=== PATIENT | male | born 1970 | race Caucasian/White ===

== ENCOUNTER 2024-05-19 18:32 | Inpatient (IN) | payer OTHER ==
[2024-05-19 18:57] VITALS: BMI 27.3
[2024-05-19] MEDS ORDERED: IBUPROFEN 400 MG TABLET (FP) PO PRN (21:41)
[2024-05-19] MEDS ORDERED: NALOXONE (NARCAN) HCL 4 MG/0.1 ML SPRAY NS PRN (21:41)
[2024-05-19] MEDS ORDERED: POLYETHYLENE GLYCOL (HEALTHYLAX) 3350 17 GM PACKET PO PRN (21:41)
[2024-05-19] MEDS ORDERED: BENZOCAINE/MENTHOL (CHLORASEPTIC ) LOZENGE MM PRN (21:41)
[2024-05-19] MEDS ORDERED: MAG HYDROX/AL HYDROX/SIMETH 30 ML UNIT-DOSE CUP PO PRN (21:41)
[2024-05-19] MEDS ORDERED: DICYCLOMINE HCL 10 MG CAPSULE PO PRN (21:41)
[2024-05-19] MEDS ORDERED: ONDANSETRON *ODT* 4 MG TABLET SL PRN (21:41)
[2024-05-19] MEDS ORDERED: BENZONATATE 200 MG CAPSULE PO PRN (21:41)
[2024-05-19] MEDS ORDERED: LOPERAMIDE HCL 2 MG CAPSULE PO PRN (21:41)
[2024-05-19] MEDS ORDERED: MAGNESIUM HYDROX 2400MG/30ML ORAL SUSPENSION 30 ML CUP PO PRN (21:41)
[2024-05-19] MEDS ORDERED: NALOXONE HCL 0.4 MG/ML VIAL IM PRN (21:41)
[2024-05-19] MEDS ORDERED: guaiFENesin 600 MG TABLET.ER (FP) PO PRN (21:41)
[2024-05-19] MEDS ORDERED: chlordiazePOXIDE HCL 25 MG CAPSULE PO PRN (21:41)
[2024-05-19] MEDS ORDERED: NICOTINE POLACRILEX 4 MG GUM BUC PRN (21:41)
[2024-05-19] MEDS ORDERED: BISMUTH SUBSALICYLATE 524 MG/30 ML PO PRN (21:41)
[2024-05-19] MEDS ORDERED: hydrOXYzine PAMOATE 25 MG CAPSULE (FP) PO ONE (21:49)
[2024-05-19] MEDS: chlordiazePOXIDE HCL 25 MG CAPSULE PO ONE (21:53)
[2024-05-19] MEDS: hydrOXYzine PAMOATE 25 MG CAPSULE (FP) PO PRN (21:54)
[2024-05-19] MEDS: METHOCARBAMOL 500 MG TABLET PO PRN (21:54)
[2024-05-19] MEDS: THIAMINE 100 MG TABLET PO SCH (22:40)
[2024-05-19] MEDS: MELATONIN 5 MG TABLETS PO SCH (22:40)
[2024-05-19] MEDS: chlordiazePOXIDE HCL 25 MG CAPSULE PO SCH (23:02)
[2024-05-20] MEDS: NICOTINE 21 MG/24 HOURS TOPICAL PATCH TD SCH (10:22)
[2024-05-20] MEDS: PRENATAL VITAMINS W/ FOLIC ACID TABLET (FP) PO SCH (10:26)
[2024-05-20 11:06] LABS: HEMATOCRIT 38.1 % (35.4-49); HEMOGLOBIN 12.6 GM/dL (11.7-16.9); MCH 27.4 pg (25.7-33.7); MCHC 33.2 g/dl (32.0-35.9); MEAN CELL VOLUME 82.7 fl (80-96); MEAN PLT VOLUME 8.7 fl (7.5-11.1); PLATELET COUNT 241 10^3/uL (134-434); RBC 4.61 M/mm3 (4.00-5.60); RDW 17.2 % (11.9-15.9); WHITE BLOOD COUNT 7.2 K/mm3 (4.0-10.0)
[2024-05-20 11:08] LABS: CHLORIDE 108 mmol/L (98-107); POTASSIUM 3.2 mmol/L (3.5-5.1); SODIUM 140 mmol/L (136-145)
[2024-05-20 11:13] LABS: ALBUMIN 3.4 g/dl (3.4-5.0); ANION GAP 4 mmol/L (4-13); BLOOD UREA NITROGEN 10.4 mg/dL (7-18); CALCIUM 9.2 mg/dL (8.5-10.1); CO2 29 mmol/L (21-32); GLUCOSE,RANDOM 143 mg/dL (74-106)
[2024-05-20 11:16] LABS: CREATININE 0.8 mg/dL (0.55-1.3); SGOT/AST 25 U/L (15-37); SGPT/ALT 26 U/L (13-61)
[2024-05-20 11:18] LABS: BILIRUBIN,TOTAL 1.1 mg/dL (0.2-1); TOT PROT 7.1 g/dl (6.4-8.2)
[2024-05-20 11:19] LABS: ALK PHOS 89 U/L (45-117)
[2024-05-20] MEDS: IBUPROFEN 600 MG TABLET (FP) PO PRN (17:25)
[2024-05-21] MEDS: ACETAMINOPHEN 325 MG TABLET (FP) PO PRN (05:16)
[2024-05-21] MEDS: chlordiazePOXIDE HCL 25 MG CAPSULE PO SCH (05:17)
[2024-05-21] MEDS: POTASSIUM CHLORIDE ORAL LIQUID 20 MEQ/15 ML PO ONE (09:55)
[2024-05-22] MEDS: chlordiazePOXIDE HCL 10 MG CAPSULE PO PRN (03:32)
[2024-05-22] MEDS: chlordiazePOXIDE HCL 10 MG CAPSULE PO SCH (05:22)
[2024-05-22] MEDS: GABAPENTIN 100 MG CAPSULE PO SCH (09:14)
[2024-05-22 13:57] LABS: POTASSIUM 3.4 mmol/L (3.5-5.1)
[2024-05-22 14:09] LABS: BLOOD UREA NITROGEN 6.2 mg/dL (7-18); CALCIUM 8.9 mg/dL (8.5-10.1)
[2024-05-22 14:12] LABS: CREATININE 0.8 mg/dL (0.55-1.3)
[2024-05-22] MEDS: PRAMIPEXOLE DIHYDROCHLORIDE 0.125 MG TABLET PO SCH (19:07)
[2024-05-22] MEDS: POTASSIUM CHLORIDE ORAL LIQUID 20 MEQ/15 ML PO ONE ×2 (19:08→21:59)
[2024-05-22] MEDS: busPIRone HCL 10 MG TABLET (FP) PO SCH (21:57)
[2024-05-22] MEDS: QUEtiapine FUMARATE 200 MG TABLET PO SCH (21:57)
[2024-05-23] MEDS: chlordiazePOXIDE HCL 10 MG CAPSULE PO SCH (05:58)
[2024-05-23] MEDS: SERTRALINE HCL 50 MG TABLET (FP) PO SCH (10:32)
[2024-05-23 12:32] LABS: POTASSIUM 3.9 mmol/L (3.5-5.1)
[2024-05-23 12:35] LABS: CALCIUM 8.8 mg/dL (8.5-10.1)
[2024-05-23 12:36] LABS: BLOOD UREA NITROGEN 4.5 mg/dL (7-18)
[2024-05-23 12:39] LABS: CREATININE 0.6 mg/dL (0.55-1.3)
[2024-05-24] MEDS: chlordiazePOXIDE HCL 10 MG CAPSULE PO ONE (05:50)
[2024-05-24 08:52] VITALS: BP 143/90; PULSE 65; RESP 19; TEMP 97.7
== END 2024-05-24 09:38 | disposition other institution (70) | DRG 773 ==
LOC: YASAS 18:32 → Y3N 21:56
PROVIDERS: ADMIT Allergy & Immunology; ATTEND Surgery
PROC: HZ2ZZZZ Detoxification Services for Substance Abuse Treatment (ICD-10-PCS; principal; 2024-05-19)
DX: F10.230 Alcohol dependence with withdrawal, uncomplicated (principal); F11.20 Opioid dependence, uncomplicated; F14.20 Cocaine dependence, uncomplicated; F17.210 Nicotine dependence, cigarettes, uncomplicated; F19.282 Other psychoactive substance dependence with psychoactive substance-induced sleep disorder; F19.24 Other psychoactive substance dependence with psychoactive substance-induced mood disorder; F31.9 Bipolar disorder, unspecified; F41.9 Anxiety disorder, unspecified; F43.10 Post-traumatic stress disorder, unspecified; E87.6 Hypokalemia; G25.81 Restless legs syndrome; I10 Essential (primary) hypertension; J45.20 Mild intermittent asthma, uncomplicated; Z62.810 Personal history of physical and sexual abuse in childhood
CPT/HCPCS: 36415; 80048; 80053; 80305; 80307; 85027; 86780; 93005; 93010

== ENCOUNTER 2024-07-06 13:32 | Inpatient (IN) | payer OTHER ==
[2024-07-06] MEDS: IBUPROFEN 400 MG TABLET (FP) PO ONE (04:25)
[2024-07-06 14:15] VITALS: BMI 28.6
[2024-07-06] MEDS ORDERED: MAGNESIUM HYDROX 2400MG/30ML ORAL SUSPENSION 30 ML CUP PO PRN (16:51)
[2024-07-06] MEDS ORDERED: MAG HYDROX/AL HYDROX/SIMETH 30 ML UNIT-DOSE CUP PO PRN (16:51)
[2024-07-06] MEDS ORDERED: guaiFENesin 600 MG TABLET.ER (FP) PO PRN (16:51)
[2024-07-06] MEDS ORDERED: ONDANSETRON *ODT* 4 MG TABLET SL PRN (16:51)
[2024-07-06] MEDS ORDERED: DICYCLOMINE HCL 10 MG CAPSULE PO PRN (16:51)
[2024-07-06] MEDS ORDERED: IBUPROFEN 400 MG TABLET (FP) PO PRN (16:51)
[2024-07-06] MEDS ORDERED: BENZONATATE 200 MG CAPSULE PO PRN (16:51)
[2024-07-06] MEDS ORDERED: POLYETHYLENE GLYCOL (HEALTHYLAX) 3350 17 GM PACKET PO PRN (16:51)
[2024-07-06] MEDS ORDERED: BISMUTH SUBSALICYLATE 524 MG/30 ML PO PRN (16:51)
[2024-07-06] MEDS ORDERED: LOPERAMIDE HCL 2 MG CAPSULE PO PRN (16:51)
[2024-07-06] MEDS ORDERED: BENZOCAINE/MENTHOL (CHLORASEPTIC ) LOZENGE MM PRN (16:51)
[2024-07-06] MEDS ORDERED: NALOXONE (NARCAN) HCL 4 MG/0.1 ML SPRAY NS PRN (16:51)
[2024-07-06] MEDS: hydrOXYzine PAMOATE 25 MG CAPSULE (FP) PO PRN (18:02)
[2024-07-06] MEDS: chlordiazePOXIDE HCL 25 MG CAPSULE PO PRN (18:02)
[2024-07-06] MEDS: METHOCARBAMOL 500 MG TABLET PO PRN (18:02)
[2024-07-06] MEDS: THIAMINE 100 MG TABLET PO SCH (22:42)
[2024-07-06] MEDS: MELATONIN 5 MG TABLETS PO SCH (22:42)
[2024-07-06] MEDS: chlordiazePOXIDE HCL 25 MG CAPSULE PO SCH (22:42)
[2024-07-07] MEDS: PRENATAL VITAMINS W/ FOLIC ACID TABLET (FP) PO SCH (10:03)
[2024-07-07] MEDS: SERTRALINE HCL 50 MG TABLET (FP) PO SCH (11:29)
[2024-07-07] MEDS: busPIRone HCL 10 MG TABLET (FP) PO ONE (12:16)
[2024-07-07 14:23] LABS: CHLORIDE 109 mmol/L (98-107); POTASSIUM 3.9 mmol/L (3.5-5.1); SODIUM 142 mmol/L (136-145)
[2024-07-07 14:24] LABS: HEMATOCRIT 39.6 % (35.4-49); HEMOGLOBIN 12.9 GM/dL (11.7-16.9); MCH 27.3 pg (25.7-33.7); MCHC 32.5 g/dl (32.0-35.9); MEAN CELL VOLUME 84.1 fl (80-96); MEAN PLT VOLUME 8.4 fl (7.5-11.1); PLATELET COUNT 298 10^3/uL (134-434); RBC 4.71 M/mm3 (4.00-5.60); RDW 16.7 % (11.9-15.9); WHITE BLOOD COUNT 7.4 K/mm3 (4.0-10.0)
[2024-07-07 14:27] LABS: ALBUMIN 3.7 g/dl (3.4-5.0); ANION GAP 6 mmol/L (4-13); BLOOD UREA NITROGEN 11.2 mg/dL (7-18); CALCIUM 9.5 mg/dL (8.5-10.1); CO2 27 mmol/L (21-32); GLUCOSE,RANDOM 137 mg/dL (74-106)
[2024-07-07 14:30] LABS: CREATININE 0.9 mg/dL (0.55-1.3); SGOT/AST 19 U/L (15-37); SGPT/ALT 28 U/L (13-61)
[2024-07-07 14:32] LABS: TOT PROT 7.6 g/dl (6.4-8.2)
[2024-07-07 14:33] LABS: ALK PHOS 85 U/L (45-117)
[2024-07-07] MEDS: ACETAMINOPHEN 325 MG TABLET (FP) PO PRN (20:27)
[2024-07-07] MEDS ORDERED: QUEtiapine FUMARATE 100 MG TABLET (FP) PO SCH (22:00)
[2024-07-07] MEDS: QUEtiapine FUMARATE 300 MG TABLET PO SCH (22:16)
[2024-07-07] MEDS: busPIRone HCL 10 MG TABLET (FP) PO SCH (22:18)
[2024-07-07] MEDS: IBUPROFEN 600 MG TABLET (FP) PO PRN (23:39)
[2024-07-08] MEDS: chlordiazePOXIDE HCL 25 MG CAPSULE PO SCH (05:21)
[2024-07-09] MEDS ORDERED: chlordiazePOXIDE HCL 10 MG CAPSULE PO PRN
[2024-07-09] MEDS: chlordiazePOXIDE HCL 10 MG CAPSULE PO SCH (06:20)
[2024-07-09] MEDS: NICOTINE POLACRILEX 2 MG GUM BUC PRN (12:34)
[2024-07-10] MEDS: chlordiazePOXIDE HCL 10 MG CAPSULE PO SCH (05:21)
[2024-07-11] MEDS: chlordiazePOXIDE HCL 10 MG CAPSULE PO ONE (05:50)
[2024-07-11 06:01] VITALS: PULSE 60; RESP 16
[2024-07-11 09:11] VITALS: BP 152/90; TEMP 97.7
[2024-07-11] MEDS ORDERED: ALBUTEROL SO4 HFA INHALER IH PRN (09:51)
[2024-07-11] MEDS: amLODIPine BESYLATE 10 MG TABLET (FP) PO ONE (10:03)
[2024-07-11] MEDS ORDERED: NALOXONE (NYS OPIOID OVERDOSE PROGRAM) 4 MG/0.1 ML SPRAY NS PRN (10:15)
[2024-07-11] MEDS: amLODIPine BESYLATE 10 MG TABLET (FP) PO SCH (10:28)
== END 2024-07-11 10:11 | disposition other institution (70) | DRG 774 ==
LOC: YASAS 13:32 → Y6N 17:09
PROVIDERS: ADMIT Allergy & Immunology; ATTEND Surgery
PROC: HZ2ZZZZ Detoxification Services for Substance Abuse Treatment (ICD-10-PCS; principal; 2024-07-06)
DX: F10.230 Alcohol dependence with withdrawal, uncomplicated (principal); F14.20 Cocaine dependence, uncomplicated; F12.20 Cannabis dependence, uncomplicated; F17.210 Nicotine dependence, cigarettes, uncomplicated; F43.10 Post-traumatic stress disorder, unspecified; E03.9 Hypothyroidism, unspecified; I10 Essential (primary) hypertension; J45.20 Mild intermittent asthma, uncomplicated; M54.50 Low back pain, unspecified; G89.29 Other chronic pain; Z59.00 Homelessness unspecified
CPT/HCPCS: 36415; 80053; 80305; 80307; 85027; 86780

== ENCOUNTER 2025-04-18 15:34 | Inpatient (IN) | payer OTHER ==
[2025-04-18 16:00] VITALS: BMI 28.5
[2025-04-18] MEDS ORDERED: MAG HYDROX/AL HYDROX/SIMETH 30 ML UNIT-DOSE CUP PO PRN (16:47)
[2025-04-18] MEDS ORDERED: IBUPROFEN 600 MG TABLET (FP) PO PRN (16:47)
[2025-04-18] MEDS ORDERED: NICOTINE POLACRILEX 2 MG GUM BUC PRN (16:47)
[2025-04-18] MEDS ORDERED: POLYETHYLENE GLYCOL (HEALTHYLAX) 3350 17 GM PACKET PO PRN (16:47)
[2025-04-18] MEDS ORDERED: hydrOXYzine PAMOATE 25 MG CAPSULE (FP) PO PRN (16:47)
[2025-04-18] MEDS ORDERED: LOPERAMIDE HCL 2 MG CAPSULE PO PRN (16:47)
[2025-04-18] MEDS ORDERED: ACETAMINOPHEN 325 MG TABLET (FP) PO PRN (16:47)
[2025-04-18] MEDS ORDERED: MAGNESIUM HYDROX 2400MG/30ML ORAL SUSPENSION 30 ML CUP PO PRN (16:47)
[2025-04-18] MEDS ORDERED: NALOXONE (NARCAN) HCL 4 MG/0.1 ML SPRAY NS PRN (16:47)
[2025-04-18] MEDS ORDERED: METHOCARBAMOL 500 MG TABLET PO PRN (16:47)
[2025-04-18] MEDS ORDERED: DICYCLOMINE HCL 10 MG CAPSULE PO PRN (16:47)
[2025-04-18] MEDS ORDERED: ONDANSETRON *ODT* 4 MG TABLET SL PRN (16:47)
[2025-04-18] MEDS ORDERED: BISMUTH SUBSALICYLATE 524 MG/30 ML PO PRN (16:47)
[2025-04-18] MEDS: MELATONIN 5 MG TABLETS PO SCH (22:34)
[2025-04-18] MEDS: THIAMINE 100 MG TABLET PO SCH (22:34)
[2025-04-18] MEDS: guaiFENesin 600 MG TABLET.ER (FP) PO PRN (22:36)
[2025-04-19] MEDS: IBUPROFEN 400 MG TABLET (FP) PO PRN (04:11)
[2025-04-19] MEDS: BENZONATATE 200 MG CAPSULE PO PRN (04:11)
[2025-04-19] MEDS: BENZOCAINE/MENTHOL (CHLORASEPTIC ) LOZENGE MM PRN (04:14)
[2025-04-19] MEDS ORDERED: ALBUTEROL SO4 HFA INHALER IH PRN (08:46)
[2025-04-19 10:00] LABS: MCHC 31.7 g/dl (32.3-36.5); MEAN CELL VOLUME 87.4 fl (79.0-92.2); MEAN PLT VOLUME 11.6 fl (9.4-12.4); RDW 15.7 % (12.2-16.1)
[2025-04-19 10:09] LABS: GLUCOSE,RANDOM 155 mg/dL (74-106); TOT PROT 6.9 g/dl (6.4-8.2)
[2025-04-19 10:11] LABS: CO2 21 mmol/L (21-32)
[2025-04-19 10:12] LABS: ALK PHOS 70 U/L (40-150)
[2025-04-19 10:15] LABS: CREATININE 0.70 mg/dL (0.55-1.3); SGOT/AST 19 U/L (5-34); SGPT/ALT 13 U/L (0-55)
[2025-04-19] MEDS: amLODIPine BESYLATE 5 MG TABLET (FP) PO SCH (10:36)
[2025-04-19] MEDS: PRENATAL VITAMINS W/ FOLIC ACID TABLET (FP) PO SCH (10:36)
[2025-04-19] MEDS: NICOTINE 21 MG/24 HOURS TOPICAL PATCH TD SCH (10:37)
[2025-04-19] MEDS: GABAPENTIN 100 MG CAPSULE PO SCH (14:02)
[2025-04-19] MEDS: QUEtiapine FUMARATE 100 MG TABLET (FP) PO SCH (22:05)
[2025-04-19] MEDS: MIRTAZAPINE 15 MG TABLET (FP) PO SCH (22:05)
[2025-04-20] MEDS: SERTRALINE HCL 25 MG TABLET (FP) PO SCH (10:46)
[2025-04-21 06:04] VITALS: TEMP 97.6
[2025-04-21 13:57] VITALS: BP 122/90; PULSE 96; RESP 18
== END 2025-04-21 16:50 | disposition home or self-care (01) | DRG 774 ==
LOC: YASAS 15:34 → Y3N 17:15
PROVIDERS: ADMIT Neuromusculoskeletal Medicine & OMM; ATTEND Allergy & Immunology
PROC: HZ2ZZZZ Detoxification Services for Substance Abuse Treatment (ICD-10-PCS; principal; 2025-04-18)
DX: F10.230 Alcohol dependence with withdrawal, uncomplicated (principal); F14.20 Cocaine dependence, uncomplicated; F12.20 Cannabis dependence, uncomplicated; F17.210 Nicotine dependence, cigarettes, uncomplicated; F31.9 Bipolar disorder, unspecified; F19.24 Other psychoactive substance dependence with psychoactive substance-induced mood disorder; E03.9 Hypothyroidism, unspecified; I10 Essential (primary) hypertension; J45.909 Unspecified asthma, uncomplicated; M54.41 Lumbago with sciatica, right side; M54.42 Lumbago with sciatica, left side; G89.29 Other chronic pain
CPT/HCPCS: 36415; 80053; 80307; 84443; 85027; 86780; 93005; 93010